=== PATIENT | female | born 2000 | race Caucasian/White ===

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

== ENCOUNTER → 2018-01-21 | Outpatient (REF) | payer OTHER | LOC: M SFHCLERA 13:02 | DX: J02.9 Acute pharyngitis, unspecified (principal) ==

== ENCOUNTER → 2020-01-26 | Outpatient (REF) | payer OTHER ==
[~2020-01-26] MED LIST: AUGM875T28 PO; SPRI28TA
== END ==
LOC: M SFHCWAGY 12:57
PROVIDERS: ATTEND Advanced Practice Midwife
DX: Z11.3 Encounter for screening for infections with a predominantly sexual mode of transmission (principal)

== ENCOUNTER → 2020-01-26 | Outpatient (REF) | payer OTHER ==
[2020-01-26 12:33] LABS: HEPATITIS B SURFACE ANTIGEN NEGATIVE (NEGATIVE)
[2020-01-26 12:38] LABS: HEPATITIS A ANTIBODY IGM NEGATIVE (NEGATIVE); HEPATITIS B CORE ANTIBODY IGM NEGATIVE (NEGATIVE); HEPATITIS C VIRUS ABY INDEX 0.1 INDEX (<0.8); HIV 1&2 SCREEN CENTAUR NEGATIVE (NEGATIVE)
== END ==
LOC: M PLALAB 09:09
PROVIDERS: ATTEND Advanced Practice Midwife
DX: Z11.3 Encounter for screening for infections with a predominantly sexual mode of transmission (principal)

== ENCOUNTER → 2020-01-27 | Outpatient (CLI) | payer OTHER ==
--- NOTE | 2020-01-27 11:16 | REP ---
INDICATION: POSTCOITAL BLEEDING. COMPARISON: None. TECHNIQUE: Transabdominal and transvaginal scanning were performed. FINDINGS: Uterine dimensions are normal at 6.1 x 2.7 x 4.1 cm. Endometrial echo is 0.3 cm thick and centrally placed. No free fluid is seen in the cul-de-sac. Visualized bladder pretty are smooth. An IUD is seen in good position in the uterine endometrium. The right ovary has dimensions of 2.8 x 2.4 x 3.1 cm. It's Doppler flow is normal with a resistive index of 0.58. The left ovary dimensions are normal as well at 2.8 x 1.5 x 1.5 cm. It's Doppler flow was normal with resistive index of 0.53. IMPRESSION: IUD in good position. No morphologic abnormality. Normal pelvic sonography.. <Electronically signed by Cristian Shannon > 01/27/20 [id number]
== END ==
LOC: M WHC 09:34
PROVIDERS: ATTEND Advanced Practice Midwife
DX: N93.0 Postcoital and contact bleeding (principal)

== ENCOUNTER → 2020-02-14 | Outpatient (REF) | payer OTHER ==
[2020-02-20 17:13] LABS: CHLAMYDIA DNA AMPLIFICATION NEGATIVE (NEGATIVE); GC DNA AMPLIFICATION NEGATIVE (NEGATIVE)
== END ==
LOC: M SFHCWAGY 13:06
PROVIDERS: ATTEND Advanced Practice Midwife
DX: Z12.4 Encounter for screening for malignant neoplasm of cervix (principal); Z11.3 Encounter for screening for infections with a predominantly sexual mode of transmission

== ENCOUNTER → 2020-02-17 | Outpatient (CLI) | payer SELFPAY | LOC: M LABSMTC 11:07 | PROVIDERS: ATTEND Pediatrics | DX: Z20.828 Contact with and (suspected) exposure to other viral communicable diseases (principal) ==

== ENCOUNTER → 2020-06-28 | Outpatient (REF) | payer OTHER ==
[2020-06-28 17:34] LABS: CHLAMYDIA DNA AMPLIFICATION NEGATIVE (NEGATIVE); GC DNA AMPLIFICATION NEGATIVE (NEGATIVE)
[2020-06-29 10:51] LABS: HEPATITIS A ANTIBODY IGM NEGATIVE (NEGATIVE); HEPATITIS B CORE ANTIBODY IGM NEGATIVE (NEGATIVE); HEPATITIS B SURFACE ANTIGEN NEGATIVE (NEGATIVE); HEPATITIS C VIRUS ABY INDEX < 0.0 INDEX (<0.8); HIV 1&2 SCREEN CENTAUR NEGATIVE (NEGATIVE)
[2020-07-02 16:11] LABS: HSV TYPE I IgG SPECIFIC <0.91 index (0.00-0.90); HSV TYPE I IgM AB <1:10 titer (<1:10); HSV TYPE II IgG SPECIFIC <0.91 index (0.00-0.90); HSV TYPE II IgM ABY <1:10 titer (<1:10)
== END ==
LOC: M PLALAB 12:35
PROVIDERS: ATTEND Advanced Practice Midwife
DX: Z32.02 Encounter for pregnancy test, result negative (principal)
CPT/HCPCS: 36415; 86695; 86696; 86705; 86709; 86780; 86803; 87340; 87389; 87661; G0463

== ENCOUNTER → 2024-12-29 | Outpatient (CLI) | payer BC | LOC: M PLALAB 16:11 | PROVIDERS: ATTEND Advanced Practice Midwife | DX: O36.80X0 Pregnancy with inconclusive fetal viability, not applicable or unspecified (principal); Z3A.00 Weeks of gestation of pregnancy not specified ==

== ENCOUNTER → 2024-12-30 | Outpatient (CLI) | payer BC | LOC: M WHC 12:34 | PROVIDERS: ATTEND Advanced Practice Midwife | DX: O36.80X0 Pregnancy with inconclusive fetal viability, not applicable or unspecified (principal); Z3A.08 8 weeks gestation of pregnancy ==

== ENCOUNTER → 2025-01-26 | Outpatient (CLI) | payer BC, OTHER ==
[2025-01-26 15:32] LABS: PLATELET COUNT, AUTOMATED 296 10^3/uL (150-450)
[2025-01-26 16:06] LABS: HIV 1&2 SCREEN NEGATIVE (NEGATIVE)
[2025-01-26 16:14] LABS: HEPATITIS C VIRUS ABY INDEX < 0.02 INDEX (<0.8)
== END ==
LOC: M PLALAB 11:27
PROVIDERS: ATTEND Advanced Practice Midwife
DX: Z34.81 Encounter for supervision of other normal pregnancy, first trimester (principal)

== ENCOUNTER → 2025-02-24 | Outpatient (REF) | payer BC, OTHER ==
[2025-02-24 12:14] LABS: Trichomonas vaginalis (AMP) NOT DETECTED (NEGATIVE)
[2025-02-24 12:38] LABS: GC DNA AMPLIFICATION NEGATIVE (NEGATIVE)
== END ==
LOC: M PLALAB 08:31
PROVIDERS: ATTEND Advanced Practice Midwife
DX: Z34.01 Encounter for supervision of normal first pregnancy, first trimester (principal)